=== PATIENT | male | born 1985 | race African-American/Black ===

== ENCOUNTER 2021-07-25 15:17 | Emergency (ER) | payer SELFPAY ==
[~2021-07-25] VITALS: Ht 170.2 cm; Wt 85.7 kg
[2021-07-25 15:31] VITALS: BP 141/70
--- NOTE | 2021-07-25 19:05 | NUR ---
PATIENT ELOPED FROM FACILITY. DISCHARGE INSTRUCTIONS NOT GIVEN TO PATIENT. DR. SORTO NOTIFIED.
== END 2021-07-25 19:05 | disposition left against medical advice (07) ==
LOC: MED 15:17
DX: R63.0 Anorexia (principal)
CPT/HCPCS: 99281